=== PATIENT | male | born 1945 | race Caucasian/White ===

== ENCOUNTER 2021-09-23 08:20 | Observation (INO) ==
[2021-09-23 09:28] LABS: Basophils # 0.1 10*3/uL (0.0-0.2); Basophils % 1.4 % (0.0-0.8); Eosinophils # 0.1 10*3/uL (0.0-0.87); Eosinophils % 2.2 % (0.00-10.9); Hematocrit 43.3 VOL% (42.0-52.0); Hemoglobin 14.2 GM/DL (14.0-18.0); Immature Granulocytes % 0.3 %; Immature Granulocytes Absolute 0.02 #; Lymphocytes # 1.5 10*3/uL (1.4-4.0); Lymphocytes % 25.9 % (21.2-54.2); Mean Corpuscular HGB Conc 32.8 GM/DL (32-36); Mean Corpuscular Volume 94.7 FL (87-102); Monocytes % 8.7 % (1.7-12.7); Neutrophils % 61.5 % (38.7-73.9); Platelet Count 214 T/CUMM (130-400); Red Blood Count 4.57 MC/CUMM (3.8-5.5); Red Cell Distribution Width 13.7 % (9.3-17.3); White Blood Count 5.9 T/CUMM (4-12)
[2021-09-23] MEDS ORDERED: FUROSEMIDE 100 MG/10 ML VIAL IV STA (09:35)
[2021-09-23 09:47] LABS: Albumin 3.9 G/DL (3.4-5.0); Calcium 9.1 MG/DL (8.5-10.1); Osmolality,Calculated 281.3 MOS/KG (273-304); Potassium 3.3 MMOL/L (3.5-5.1); Total Protein 7.2 G/DL (6.4-8.2)
[2021-09-23] MEDS ORDERED: ONDANSETRON 4 MG/2 ML VIAL IV PRN (10:03)
[2021-09-23] MEDS ORDERED: ACETAMINOPHEN 325 MG TABLET PO PRN (10:03)
[2021-09-23] MEDS ORDERED: DEXTROSE 50% 25 GM/50 ML SYRINGE IV PRN (10:03)
[2021-09-23] MEDS ORDERED: GLUCAGON 1 MG VIAL IM PRN (10:03)
[2021-09-23] MEDS ORDERED: hydrALAZINE 20 MG/1 ML VIAL IV PRN (10:03)
[2021-09-23] MEDS ORDERED: NITROGLYCERIN SL 0.4 MG TABLET SL PRN (10:05)
[2021-09-23] MEDS: PANTOPRAZOLE 40 MG TABLET PO SCH (11:33)
[2021-09-23] MEDS: DIGOXIN 0.125 MG TABLET PO SCH (13:37)
[2021-09-23] MEDS: carvediloL 3.125 MG TABLET PO SCH (20:59)
[2021-09-23] MEDS: NON-FORMULARY MEDICATION (Sacubitril-Valsartan [Entresto] 24-26 mg Tablet) PO SCH (21:11)
[2021-09-23] MEDS: APIXABAN 2.5 MG TABLET PO SCH (21:11)
[2021-09-23] MEDS: ATORVASTATIN 20 MG TABLET PO SCH (21:11)
[2021-09-24 05:55] LABS: Basophils # 0.1 10*3/uL (0.0-0.2); Basophils % 0.9 % (0.0-0.8); Eosinophils # 0.1 10*3/uL (0.0-0.87); Eosinophils % 2.2 % (0.00-10.9); Hematocrit 37.3 VOL% (42.0-52.0); Hemoglobin 12.4 GM/DL (14.0-18.0); Immature Granulocytes % 0.2 %; Immature Granulocytes Absolute 0.01 #; Lymphocytes # 1.7 10*3/uL (1.4-4.0); Lymphocytes % 25.9 % (21.2-54.2); Mean Corpuscular HGB Conc 33.2 GM/DL (32-36); Mean Corpuscular Volume 92.6 FL (87-102); Mean Platelet Volume 10.6 FL (9.6-12.0); Monocytes % 11.2 % (1.7-12.7); Neutrophils % 59.6 % (38.7-73.9); Platelet Count 158 T/CUMM (130-400); Red Blood Count 4.03 MC/CUMM (3.8-5.5); Red Cell Distribution Width 13.3 % (9.3-17.3); White Blood Count 6.4 T/CUMM (4-12)
[2021-09-24] MEDS: LEVOTHYROXINE 100 MCG TABLET PO SCH (06:17)
[2021-09-24 06:31] LABS: Calcium 8.6 MG/DL (8.5-10.1); Potassium 2.8 MMOL/L (3.5-5.1); Risk Ratio 3.05; VLDL Cholesterol 14.4 MG/DL
[2021-09-24] MEDS ORDERED: POTASSIUM CHLORIDE 20 MEQ TABLET PO PRN (07:43)
[2021-09-24] MEDS: PANTOPRAZOLE 40 MG TABLET PO SCH (10:27)
[2021-09-24] MEDS: POTASSIUM CHLORIDE 20 MEQ TABLET PO SCH (10:27)
[2021-09-24] MEDS: APIXABAN 2.5 MG TABLET PO SCH ×2 (10:27→21:57)
[2021-09-24] MEDS: FUROSEMIDE 40 MG/4 ML VIAL IV SCH (10:27)
[2021-09-24] MEDS: CHOLECALCIFEROL 1,000 UNIT TABLET PO SCH (10:27)
[2021-09-24] MEDS: ASPIRIN EC 81 MG TABLET PO SCH (10:27)
[2021-09-24] MEDS: carvediloL 3.125 MG TABLET PO SCH ×2 (10:27→21:57)
[2021-09-24] MEDS: ALFUZOSIN 10 MG TABLET PO SCH (10:27)
[2021-09-24] MEDS: NON-FORMULARY MEDICATION (Sacubitril-Valsartan [Entresto] 24-26 mg Tablet) PO SCH (11:59)
[2021-09-24] MEDS: DIGOXIN 0.125 MG TABLET PO SCH (12:58)
[2021-09-24] MEDS ORDERED: POTASSIUM CHLORIDE 20 MEQ TABLET PO ONE (14:53)
[2021-09-24] MEDS: ATORVASTATIN 20 MG TABLET PO SCH (21:58)
[2021-09-25] MEDS: NON-FORMULARY MEDICATION (Sacubitril-Valsartan [Entresto] 24-26 mg Tablet) PO SCH ×2 (01:20→10:04)
[2021-09-25 04:24] LABS: Basophils # 0.1 10*3/uL (0.0-0.2); Eosinophils # 0.2 10*3/uL (0.0-0.87); Eosinophils % 2.3 % (0.00-10.9); Hematocrit 39.1 VOL% (42.0-52.0); Immature Granulocytes % 0.3 %; Immature Granulocytes Absolute 0.02 #; Lymphocytes # 2.2 10*3/uL (1.4-4.0); Lymphocytes % 27.8 % (21.2-54.2); Mean Corpuscular HGB Conc 33.2 GM/DL (32-36); Mean Corpuscular Volume 92.7 FL (87-102); Mean Platelet Volume 10.5 FL (9.6-12.0); Monocytes % 11.3 % (1.7-12.7); Neutrophils % 57.3 % (38.7-73.9); Platelet Count 183 T/CUMM (130-400); Red Blood Count 4.22 MC/CUMM (3.8-5.5); Red Cell Distribution Width 13.5 % (9.3-17.3); White Blood Count 7.9 T/CUMM (4-12)
[2021-09-25 04:54] LABS: Calcium 8.7 MG/DL (8.5-10.1); Potassium 3.6 MMOL/L (3.5-5.1)
[2021-09-25] MEDS: LEVOTHYROXINE 100 MCG TABLET PO SCH (06:12)
[2021-09-25 08:24] VITALS: BP 149/67
[2021-09-25] MEDS: CHOLECALCIFEROL 1,000 UNIT TABLET PO SCH (10:01)
[2021-09-25] MEDS: PANTOPRAZOLE 40 MG TABLET PO SCH (10:01)
[2021-09-25] MEDS: FUROSEMIDE 40 MG/4 ML VIAL IV SCH (10:03)
[2021-09-25] MEDS: POTASSIUM CHLORIDE 20 MEQ TABLET PO SCH (10:03)
[2021-09-25] MEDS: APIXABAN 2.5 MG TABLET PO SCH (10:04)
[2021-09-25] MEDS: ASPIRIN EC 81 MG TABLET PO SCH (10:04)
[2021-09-25] MEDS: carvediloL 3.125 MG TABLET PO SCH (10:04)
[2021-09-25] MEDS: ALFUZOSIN 10 MG TABLET PO SCH (10:09)
[2021-09-25] MEDS: DIGOXIN 0.125 MG TABLET PO SCH (13:57)
== END 2021-09-25 13:45 | disposition home or self-care (01) ==
LOC: N.ED 08:20 → N.EDINP 09:21 → INTOOBSV 09:21 → N.TELEN 11:39
PROVIDERS: ADMIT Internal Medicine; ATTEND Internal Medicine